=== PATIENT | male | born 1950 | race African-American/Black ===

== ENCOUNTER 2022-04-11 16:19 | Emergency (ER) | payer SELFPAY ==
[~2022-04-11] VITALS: Ht 182.9 cm; Wt 99.0 kg
[2022-04-11 16:23] VITALS: BP 146/88
[2022-04-12] MEDS ORDERED: IBUP-2029 MT (07:45)
== END 2022-04-11 20:15 | disposition left against medical advice (07) ==
LOC: ER 16:34
DX: Z53.21 Procedure and treatment not carried out due to patient leaving prior to being seen by health care provider (principal)

== ENCOUNTER 2022-04-12 05:31 | Emergency (ER) | payer SELFPAY ==
[~2022-04-12] VITALS: Ht 180.3 cm; Wt 125.5 kg
[2022-04-12 06:01] VITALS: BP 109/64
[2022-04-12] MEDS ORDERED: IBUPROFEN 600MG TABLET PO ONE (07:45)
[2022-04-12] MEDS ORDERED: IBUP-2029 MT (07:45)
== END 2022-04-12 09:30 | disposition home or self-care (01) ==
LOC: ER 05:31
DX: M79.18 Myalgia, other site (principal); R19.7 Diarrhea, unspecified
CPT/HCPCS: 93005; 99283